=== PATIENT | female | born 1985 ===

== ENCOUNTER 2017-09-05 13:50 | Observation (INO) | payer OTHER ==
--- NOTE | 2017-09-05 16:35 | SOAPPROG ---
SOAP Progress Note Assessment/Plan: Assessment: 31 y/o at 32.6 weeks EGA with contractions Uncomplicated Lives and receives care in [place], [place] (here on vacation) Category 1 EFM UA negative Bedside transvaginal ultrasound shows cervical length 3.0/closed cervix contractions most likely due to dehydration/elevation - contractions spaced out with oral hydration Plan: Reviewed with Dr. Escamilla Will discharge with PTL precautions and instructions to continue good hydration - is flying home shayna ANN applolita for this in [place] Call her provider with any further concerns - painful contractions, VB, LOF, decreased movement 09/05/17 16:25 09/05/17 16:53 09/05/17 17:00 09/05/17 17:01 09/05/17 17:06 Subjective: Dana presents today with h/o regular contractions that are occurring every 2 -4 minutes that have been pretty consistent since having sex last night around 9 pm. She states they are mostly a tightening feeling in nature rather than crampy/painful. She denies leaking fluid or vaginal bleeding. Her baby has been active. She has been visiting here in [place] from [place] with her for the last several days. She does state that she did do some light [place]. She feels she is hydrating well. She denies any urinary tract infection symptoms - no frequency urgency or dysuria. She denies any change in vaginal discharge, irritation, itching or odor. All other systems reviewed are negative. She states she has had and normal uneventful without any problems. Objective: VSS Obstetrical history : ( per verbal report from current provider in [place] - awaiting faxed records) EGA 32 6/7 EDC 10/25/2017 dated by LMP 01/18/17 - confirmed by 7 week US Uncomplicated Anterior placenta- no previa Labs: Blood type: O pos AB screen: neg Hep B: neg RPR: NR HIV: NR Rubella: Immune Pertinent medical/surgical history: none Pertinent Family history: none EFM shows Category 1 FHTs - baseline 140s with accels Reactive NST [place]: short mild contractions q1-3 on admission, spaced out to 3-5 with oral hydration - patient denies pain, only tightening sensation Bedside limited transvaginal ultrasound: Cervical length: 3.0/closed cervix UA negative Physical Exam - Physical Exam General Appearance: WD/WN, alert, mild distress (patient concerned with consistent contractions) EENT: PERRL/EOMI Neck: non-tender, supple Respiratory: normal breath sounds Cardiac/Chest: normal peripheral pulses, regular rate, rhythm Abdomen: non-tender Pelvic Exam: deferred (trans vag ultrasound performed for cervical length) Rectal: deferred Back: Normal inspection Skin: normal color, warm/dry Extremities: normal range of motion Neuro/Psych: no motor/sensory deficits, alert, normal mood/affect, oriented x 3 ICD10 Worksheet Patient Problems: Problems Problem Status Onset contractions Acute
== END 2017-09-05 16:50 | disposition home or self-care (01) ==
LOC: FLD 13:50
PROVIDERS: ADMIT Advanced Practice Midwife; ATTEND Advanced Practice Midwife
DX: O60.03 Preterm labor without delivery, third trimester (principal); Z3A.32 32 weeks gestation of pregnancy
CPT/HCPCS: 59025; 76815; G0378